=== PATIENT | female | born 1970 | race Caucasian/White ===

== ENCOUNTER 2025-01-16 21:32 | Observation (INO) ==
[2025-01-16] MEDS ORDERED: IOPAMIDOL 100 ML BOTTLE IV ONE (21:33)
[2025-01-16] MEDS: HYDROmorphone 1 MG/ML SYRINGE IV ONE ×2 (21:56→22:37)
[2025-01-16 22:10] LABS: Basophils # (Auto) 0.02 K/mcL (0.00-0.30); Basophils % (Auto) 0.3 % (0.0-2.0); Eosinophils # (Auto) 0.08 K/mcL (0.00-0.70); Hematocrit 40.5 % (34.1-44.9); Hemoglobin 13.8 g/dL (11.2-15.7); Lymphocytes # (Auto) 3.03 K/mcL (1.50-4.80); Lymphocytes % (Auto) 38.5 % (15.5-49.0); Mean Cell Volume 93.1 fL (80.0-100.0); Mean Corpuscular HGB Conc 34.1 g/dL (31.0-36.0); Mean Platelet Volume 9.9 fL (8.8-12.5); Monocytes # (Auto) 0.57 K/mcL (0.10-0.90); Monocytes % (Auto) 7.2 % (1.0-12.0); Platelet Count 295 K/mcL (140-440); RBC 4.35 M/mcL (3.59-5.38); Red Cell Distribution Width 11.7 % (11.5-14.5); WBC 7.9 K/mcL (4.5-11.0)
[2025-01-16] MEDS: ONDANSETRON 4 MG/2 ML VIAL IV ONE (22:10)
[2025-01-16 22:47] LABS: Appearance,Urine Clear (Clear); Bacteria,Urine Rare /hpf (0); Bilirubin,Urine Negative (Negative); Color,Urine Yellow; Glucose,Urine (UA) Negative (Negative); Ketones,Urine Negative (Negative); Leukocyte Esterase,Urine Negative /uL (Negative); Nitrate,Urine Negative (Negative); PH,Urine 7.5 (5.0-9.0); Protein,Urine Negative (Negative); Specific Gravity,Urine 1.015 (1.000-1.035); Urine Blood Negative ery/mcL (Negative); Urine RBC 0 /hpf (0-3); Urine Squamous Epithelial Cell 3 /hpf (0-4); Urine WBC 0 /hpf (0-4); Urobilinogen,Urine Normal
[2025-01-16 22:53] LABS: ALT/SGPT 18 U/L (<40); AST/SGOT 20 U/L (<32); Albumin 4.3 gm/dL (3.2-5.2); Albumin/Globulin Ratio 1.6 (1.0-2.3); Alkaline Phosphatase 78 U/L (39-117); Bilirubin,Total < 0.2 mg/dL (0.1-1.0); Blood Urea Nitrogen 17 mg/dL (6-20); Calcium 9.4 mg/dL (8.6-10.4); Carbon Dioxide 19 mmol/L (22-30); Chloride 106 mmol/L (96-108); Globulin 2.7 gm/dL (2.2-3.7); Glomerular Filtration Rate 63; Glucose 97 mg/dL (70-105); Potassium 3.9 mmol/L (3.3-5.1); Sodium 139 mmol/L (133-145)
[2025-01-17] MEDS: PIPERACILLIN SODIUM/TAZOBACTAM 3.375 GM in DEXTROSE 5% IN WATER 50 ML IV SCH (01:52)
[2025-01-17] MEDS: HYDROmorphone 1 MG/ML SYRINGE IV PRN ×2 (01:52→21:18)
[2025-01-17 02:19] LABS: INR 0.9 (0.9-1.1); Prothrombin Time 12.4 sec (11.9-14.5)
[2025-01-17] MEDS: morphine 4 MG/ML VIAL IV ONE (02:20)
[2025-01-17] MEDS: 0.9 % SODIUM CHLORIDE 1,000 ML IV SCH (02:50)
[2025-01-17] MEDS: 0.9 % SODIUM CHLORIDE 10 ML SYRINGE IV SCH (04:33)
[2025-01-17] MEDS: morphine 4 MG/ML VIAL IV PRN (04:48)
[2025-01-17] MEDS: ONDANSETRON 4 MG/2 ML VIAL IV PRN (06:54)
[2025-01-17] MEDS ORDERED: fentaNYL 100 MCG/2 ML VIAL ONE ×2 (09:20→11:14)
[2025-01-17] MEDS ORDERED: PROPOFOL 200 MG/20 ML VIAL IV ONE (09:21)
[2025-01-17] MEDS ORDERED: KETAMINE 50 MG/ML ML ONE (09:22)
[2025-01-17] MEDS ORDERED: LIDOCAINE 2% PF 5 ML VIAL ONE (09:24)
[2025-01-17] MEDS ORDERED: ROCURONIUM 10 MG/ML ML IV ONE (09:24)
[2025-01-17] MEDS ORDERED: ONDANSETRON 4 MG/2 ML VIAL ONE (09:24)
[2025-01-17] MEDS ORDERED: DEXAMETHASONE 10 MG/ML VIAL ONE (09:24)
[2025-01-17] MEDS ORDERED: MAGNESIUM SULFATE 2 GM/50 ML BAG IV ONE (09:25)
[2025-01-17] MEDS ORDERED: SUGAMMADEX SODIUM 200 MG/2 ML VIAL IV ONE (09:27)
[2025-01-17] MEDS: PIPERACILLIN SODIUM/TAZOBACTAM 3.375 GM in 0.9 % SODIUM CHLORIDE 50 ML IV ONE (09:52)
[2025-01-17] MEDS ORDERED: IPRATROPIUM/ALBUTEROL 3 ML AMPUL.NEB NEB PRN (11:10)
[2025-01-17] MEDS ORDERED: NALOXONE HCL 0.4 MG/ML VIAL IV PRN (11:10)
[2025-01-17] MEDS ORDERED: ONDANSETRON 4 MG/2 ML VIAL IV PRN (11:10)
[2025-01-17] MEDS ORDERED: diphenhydrAMINE 50 MG/ML VIAL IV PRN (11:10)
[2025-01-17] MEDS ORDERED: LACTATED RINGERS 250 ML IV PRN (11:10)
[2025-01-17] MEDS: ACETAMINOPHEN 1,000 MG/100 ML BAG IV ONE (11:27)
[2025-01-17] MEDS: fentaNYL 100 MCG/2 ML VIAL IV PRN (11:29)
[2025-01-17] MEDS: METHOCARBAMOL 1,000 MG/10 ML VIAL IV PRN (11:30)
[2025-01-17] MEDS: KETOROLAC 30 MG/ML VIAL IV PRN (11:37)
[2025-01-17] MEDS: MEPERIDINE 25 MG/ML VIAL IV PRN (11:43)
[2025-01-17] MEDS: DROPERIDOL 5 MG/2 ML VIAL IV ONE (11:50)
[2025-01-17] MEDS: LACTATED RINGERS 1,000 ML IV SCH (11:55)
[2025-01-17] MEDS: HYDROmorphone 0.5 MG/0.5 ML SYRINGE IV ONE (12:01)
[2025-01-17] MEDS: HYDROmorphone 0.5 MG/0.5 ML SYRINGE ONE (12:43)
[2025-01-17] MEDS ORDERED: DICLOFENAC 75 MG TABLET PO PRN (13:18)
[2025-01-17] MEDS: PIPERACILLIN SODIUM/TAZOBACTAM 3.375 GM in 0.9 % SODIUM CHLORIDE 100 ML IV SCH (14:10)
[2025-01-17] MEDS: METHOCARBAMOL 750 MG TABLET PO PRN (15:24)
[2025-01-17] MEDS: PANTOPRAZOLE 40 MG VIAL IV SCH (16:21)
[2025-01-17] MEDS: Progesterone Micronized 200 mg capsule PO SCH (20:20)
[2025-01-17] MEDS: traZODone HCL 100 MG TABLET PO SCH (20:20)
[2025-01-18] MEDS: THYROID, PORK 60 MG TABLET PO SCH (09:10)
[2025-01-18] MEDS: MELOXICAM 7.5 MG TABLET PO SCH (09:10)
[2025-01-18] MEDS: ESTRADIOL 1 MG TABLET PO SCH (09:10)
[2025-01-18] MEDS: ACETAMINOPHEN 1,000 MG/100 ML BAG IV SCH (14:57)
[2025-01-18] MEDS: oxyCODONE IR 5 MG TABLET PO PRN (14:57)
[2025-01-18] MEDS: ONDANSETRON 4 MG ODT TABLET SL PRN (19:41)
[2025-01-19 06:28] LABS: Basophils # (Auto) 0.04 K/mcL (0.00-0.30); Basophils % (Auto) 0.6 % (0.0-2.0); Eosinophils # (Auto) 0.08 K/mcL (0.00-0.70); Eosinophils % (Auto) 1.2 % (0.0-7.0); Hematocrit 33.8 % (34.1-44.9); Hemoglobin 11.2 g/dL (11.2-15.7); Lymphocytes # (Auto) 2.06 K/mcL (1.50-4.80); Lymphocytes % (Auto) 30.2 % (15.5-49.0); Mean Cell Volume 96.3 fL (80.0-100.0); Mean Corpuscular HGB Conc 33.1 g/dL (31.0-36.0); Monocytes # (Auto) 0.36 K/mcL (0.10-0.90); Monocytes % (Auto) 5.3 % (1.0-12.0); Neutrophils % (Auto) 62.6 % (38.0-78.0); Platelet Count 235 K/mcL (140-440); RBC 3.51 M/mcL (3.59-5.38); Red Cell Distribution Width 12.3 % (11.5-14.5); WBC 6.8 K/mcL (4.5-11.0)
[2025-01-19 06:44] LABS: ALT/SGPT 57 U/L (<40); AST/SGOT 36 U/L (<32); Albumin 3.5 gm/dL (3.2-5.2); Albumin/Globulin Ratio 1.6 (1.0-2.3); Alkaline Phosphatase 61 U/L (39-117); Bilirubin,Direct < 0.2 mg/dL (0-0.3); Bilirubin,Total 0.2 mg/dL (0.1-1.0); Blood Urea Nitrogen 10 mg/dL (6-20); Carbon Dioxide 22 mmol/L (22-30); Chloride 105 mmol/L (96-108); Globulin 2.2 gm/dL (2.2-3.7); Glomerular Filtration Rate 82; Glucose 92 mg/dL (70-105); Lactate Dehydrogenase 133 U/L (135-225); Phosphorous 2.7 mg/dL (2.5-4.5); Potassium 3.9 mmol/L (3.3-5.1); Sodium 137 mmol/L (133-145); Triglycerides 113 mg/dL (<150); Uric Acid 2.9 mg/dL (2.5-8.0)
[2025-01-19 08:02] VITALS: TEMP 98.1
[2025-01-19 11:46] VITALS: O2SAT 97
== END 2025-01-19 15:20 | disposition home or self-care (01) ==
LOC: ED 21:32 → MEDSUR 21:32
PROVIDERS: ADMIT Family Medicine Adult Medicine; ATTEND Family Medicine Adult Medicine